=== PATIENT | male | born 1940 | race African-American/Black ===

== ENCOUNTER 2022-07-11 07:36 | Day surgery (SDC) | payer MEDICARE, OTHER ==
[~2022-07-11 07:36] MED LIST: CYCLOPENTOLATE 1% OPHTH DROPS 2 ML ONE; KETOROLAC 0.45% OPHTH DROPS ONE; PHENYLEPHRINE 2.5% OPHTH 2 ML DROPS ONE; PROPARACAINE 0.5% OPHTH DROPS 15 ML ONE
--- NOTE | 2022-07-11 07:41 | ANESTHESIA ---
Pre-Anesthesia VS, & Labs - Diagnosis L nuclear cataract - Procedure L cataract extraction w/IOL - NPO >8 hours - Lab Results Lab results reviewed: Yes Home Medications and Allergies Home Medications: Ambulatory Orders Amlodipine Besylate [Norvasc] 1 tab ORAL DAILY 07/11/22 Aspirin [Aspirin EC] 1 tab ORAL DAILY 07/11/22 Doxazosin [Cardura] 1 tab ORAL DAILY 07/11/22 Losartan Potassium [Cozaar] 1 tab ORAL DAILY 07/11/22 Multivitamin with Minerals [Multivitamins with Minerals] 1 tab ORAL DAILY 07/11/22 Vit D3/Vit K2/Calc Frutoborate [Move Free [id number]] 1 tab ORAL DAILY 07/11/22 Zinc Gluconate [Zinc] 50 mg PO DAILY 07/11/22 carvediloL [Coreg] 1 tab ORAL BID 07/11/22 Allergies/Adverse Reactions: Allergies Allergy/AdvReac Type Severity Reaction Status Date / Time No Known Drug Allergies Allergy Verified 07/10/22 12:41 Anes History & Medical History - Anesthetic History Anesthesia Complications: reports: No previous complications Family history of Anesthesia Complications: Denies Family history of Malignant Hyperthermia: Denies - Medical History Cardiovascular: reports: Hypertension Pulmonary: reports: None Gastrointestinal: reports: None Urinary: reports: None Musculoskeletal: reports: Osteoarthritis Endocrine/Autoimmune: reports: None Skin: reports: None - Surgical History General: reports: Other Orthopedic: reports: Arthroscopic surgery Exam General: Alert, Cooperative Dental: WNL Mouth Openin Fingerbreadth Neck Mobility: Normal Mallampati classification: II Thyromental Distance: 4-6 cm Respiratory: Lungs clear, Normal breath sounds, No respiratory distress Cardiovascular: Regular rate Neurological: Normal speech Mental/Cognitive Status: Alert/Oriented X3, Normal for patient Cognitive Status: Within normal limits Plan Anesthesia Type: MAC Consent for Procedure(s) Verified and Reviewed: Yes Code Status: Attempt Resuscitation ASA classification: 2-Mild systemic disease Is this case an emergency?: No
[2022-07-11] MEDS ORDERED: LACTATED RINGERS 1,000 ML IV ONE (08:00)
[2022-07-11] MEDS ORDERED: MIDAZOLAM 2 MG/2 ML VIAL ONE (08:44)
[2022-07-11] MEDS ORDERED: TRIAMCIN/MOXIFLOX OPHTHALMIC 0.6 ML VIAL IO ONE ×2 (08:46→09:09)
[2022-07-11] MEDS ORDERED: VANCOMYCIN OPHTH (TOPICAL) 10 MG/ML SYRINGE ONE (08:47)
[2022-07-11] MEDS ORDERED: TIMOLOL 0.5% OPHTH DROPS ONE (08:47)
[2022-07-11] MEDS ORDERED: BSS/LIDOCAINE/EPINEPHRINE 1 ML VIAL ONE (08:47)
[2022-07-11] MEDS ORDERED: BRIMONIDINE 0.2% OPHTH DROPS 5 ML ONE (08:47)
[2022-07-11] MEDS ORDERED: EPINEPHrine 1 MG/ML AMP ONE (08:47)
[2022-07-11] MEDS ORDERED: BSS/LIDOCAINE/EPINEPHRINE 1 ML SYRINGE IO ONE (09:09)
[2022-07-11] MEDS ORDERED: EPINEPHrine 1 MG/ML AMP IR ONE (09:09)
[2022-07-11] MEDS ORDERED: PROPARACAINE 0.5% OPHTH DROPS 15 ML EACHEYE ONE (09:09)
[2022-07-11] MEDS ORDERED: TIMOLOL 0.5% OPHTH DROPS OPTH ONE (09:09)
[2022-07-11] MEDS ORDERED: BRIMONIDINE 0.2% OPHTH DROPS 5 ML OPTH ONE (09:09)
[2022-07-11] MEDS ORDERED: VANCOMYCIN OPHTH (TOPICAL) 10 MG/ML SYRINGE TOP ONE (09:10)
[2022-07-11] MEDS ORDERED: LACTATED RINGERS 700 ML IV ONE (09:18)
--- NOTE | 2022-07-11 09:25 | OPERATIVE REPORT ---
Operative Report - Other Other Information/Narrative: Date of Surgery: 07/11/22 Preop Dx: Visually significant cataract left eye. This was the first cataract surgery. Postop Dx: Same Procedure: Phacoemulsification with posterior chamber intraocular lens implant left eye Surgeon: Dr. Sky Puga Anesthesia: Monitored anesthesia care Complications: None Operative Indications: This is a 82-year-old M with progressive vision loss in the left eye due to 2+ nuclear sclerotic and vacuolar cataract. Best corrected visual acuity was 20/40 with glare to 20/50 vision in the left eye. Indications for surgery were: - Difficulty seeing words on a computer screen - Difficulty reading - Difficulty seeing words, closed captions, or game scores on TV - Difficulty seeing street signs - Difficulty driving in low light or at night - Difficulty driving at night because of headlights from other vehicles The patient was consented at length concerning the risks and benefits of cataract surgery after which the patient expressed a desire to proceed with surgery. Operative Procedure: The patient was taken into OR#3 and placed under monitored anesthesia care. A surgical time-out was conducted confirming correct patient, correct procedure, and correct surgical site. The patient was given topical anesthesia and then prepped and draped in the usual sterile fashion. The eye was entered at the 6 and 3 oclock positions. Intracameral Shugarcaine was injected into the anterior chamber followed by a dispersive viscoelastic. A continuous-tear curvilinear capsulorhexis was performed. The nucleus was hydrodissected and phacoemulsified. The cortex was evacuated using automated infusion and aspiration. A cohesive viscoelastic was injected into the capsular bag and a 16.5 diopter intraocular lens was inserted into the bag. Infusion and aspiration were used to evacuate the viscoelastic materials from the eye. The wounds were hydrated and the eye inflated to physiologic pressure using balanced salt solution. Approximately 0.25ml of a mixture of triamcinolone and moxifloxacin was injected trans-sclerally into the vitreous in the inferotemporal quadrant using a 30 gauge cannula. An additional 0.25ml of a mixture of triamcinolone, and moxifloxacin was injected subconjunctivally in the superior quadrant for infection and inflammation prophylaxis. Wound integrity was checked with Weck-Rupa sponges. The patient was taken from the operating room in good condition and given post-op instructions.
[2022-07-11 09:35] VITALS: BP 146/77
--- NOTE | 2022-07-11 09:42 | ANESTHESIA POST OP EVALUATION ---
Anesthesia Post Eval - Post Anesthesia Eval Vitals: Last Vital Signs Temp 36.3 C L 07/11/22 09:33 Pulse 56 L 07/11/22 09:33 Resp 16 07/11/22 09:33 BP 146/77 H 07/11/22 09:33 Pulse Ox 99 07/11/22 09:33 O2 Flow Rate CV Function Including HR & BP: Stable Pain Control: Satisfactory Nausea & Vomiting: Negative Mental Status: Baseline Respiratory Status: Airway Patent Hydration Status: Satisfactory Anesthesia Complications: None
== END 2022-07-11 07:37 | disposition home or self-care (01) ==
LOC: SDS 07:36
PROVIDERS: ATTEND Ophthalmology
DX: H25.12 Age-related nuclear cataract, left eye (principal); I10 Essential (primary) hypertension
CPT/HCPCS: 66984; A9270; J3490; J7120

== ENCOUNTER 2023-06-19 08:19 | Day surgery (SDC) | payer MEDICARE, OTHER ==
[2023-06-19] MEDS: KETOROLAC 0.45% OPHTH DROPS ONE (08:50)
[2023-06-19] MEDS: PROPARACAINE 0.5% OPHTH DROPS 15 ML ONE (08:50)
[2023-06-19] MEDS: PHENYLEPHRINE 2.5% OPHTH 2 ML DROPS ONE (08:51)
[2023-06-19] MEDS: CYCLOPENTOLATE 1% OPHTH DROPS 2 ML RIGHTEYE ONE (08:51)
[2023-06-19] MEDS: LACTATED RINGERS 1,000 ML IV ONE ×2 (09:10→10:33)
[2023-06-19] MEDS ORDERED: TIMOLOL 0.5% OPHTH DROPS ONE (09:45)
[2023-06-19] MEDS ORDERED: BRIMONIDINE 0.2% OPHTH DROPS 5 ML ONE (09:45)
[2023-06-19] MEDS ORDERED: EPINEPHrine 1 MG/ML AMP ONE (09:45)
[2023-06-19] MEDS ORDERED: TRIAMCIN/MOXIFLOX OPHTHALMIC 0.6 ML VIAL IO ONE (09:45)
[2023-06-19] MEDS ORDERED: BSS/LIDOCAINE/EPINEPHRINE 1 ML VIAL ONE (09:46)
--- NOTE | 2023-06-19 09:49 | ANESTHESIA ---
Pre-Anesthesia VS, & Labs - Diagnosis right nuclear cataract - Procedure right cataract extraction with IOL Vital Signs: Temp Pulse Resp BP Pulse Ox O2 Flow Rate 36.5 C 51 L 14 163/72 H 100 06/19/23 08:56 06/19/23 08:56 06/19/23 08:56 06/19/23 08:56 06/19/23 08:56 Height: 5 ft 8 in Weight (kg): 80.2 kg Body Mass Index: 26.9 BMI Classification: Overweight - NPO >8 hours Home Medications and Allergies Amlodipine Besylate [Norvasc] 1 tab ORAL DAILY 07/11/22 Aspirin [Aspirin EC] 1 tab ORAL DAILY 07/11/22 Doxazosin [Cardura] 1 tab ORAL DAILY 07/11/22 Losartan Potassium [Cozaar] 1 tab ORAL DAILY 07/11/22 Multivitamin with Minerals [Multivitamins with Minerals] 1 tab ORAL DAILY 07/11/22 Vit D3/Vit K2/Calc Frutoborate [Move Free [id number]] 1 tab ORAL DAILY 07/11/22 Zinc Gluconate [Zinc] 50 mg PO DAILY 07/11/22 carvediloL [Coreg] 1 tab ORAL BID 07/11/22 Allergies/Adverse Reactions: Allergies Allergy/AdvReac Type Severity Reaction Status Date / Time No Known Drug Allergies Allergy Verified 07/10/22 12:41 Anes History & Medical History - Anesthetic History Anesthesia Complications: reports: No previous complications - Medical History Cardiovascular: reports: Hypertension Pulmonary: reports: None Gastrointestinal: reports: None Urinary: reports: None Musculoskeletal: Endocrine/Autoimmune: reports: None Skin: reports: None Smoking Status: Never smoker - Surgical History General: reports: Other Orthopedic: reports: Arthroscopic surgery Exam General: Alert, Oriented x3 Dental: WNL, Dentures full Upper, Dentures full Lower Mouth Opening: Greater than 4 Fingerbreadths Neck Mobility: Normal Mallampati classification: II Thyromental Distance: greater than 6 cm Respiratory: Lungs clear Cardiovascular: Regular rate, Normal S1, Normal S2 Plan Anesthesia Type: MAC Consent for Procedure(s) Verified and Reviewed: Yes Code Status: Attempt Resuscitation ASA classification: 2-Mild systemic disease Is this case an emergency?: No
--- NOTE | 2023-06-19 10:03 | ANESTHESIA ---
Pre-Anesthesia VS, & Labs - Diagnosis RIGHT EYE CATARACT - Procedure PE IOL OD Vital Signs: Temp Pulse Resp BP Pulse Ox O2 Flow Rate 36.5 C 51 L 14 163/72 H 100 06/19/23 08:56 06/19/23 08:56 06/19/23 08:56 06/19/23 08:56 06/19/23 08:56 Height: 5 ft 8 in Weight (kg): 80.2 kg Body Mass Index: 26.9 BMI Classification: Overweight - NPO Other Home Medications and Allergies Amlodipine Besylate [Norvasc] 1 tab ORAL DAILY 07/11/22 Aspirin [Aspirin EC] 1 tab ORAL DAILY 07/11/22 Doxazosin [Cardura] 1 tab ORAL DAILY 07/11/22 Losartan Potassium [Cozaar] 1 tab ORAL DAILY 07/11/22 Multivitamin with Minerals [Multivitamins with Minerals] 1 tab ORAL DAILY 07/11/22 Vit D3/Vit K2/Calc Frutoborate [Move Free [id number]] 1 tab ORAL DAILY 07/11/22 Zinc Gluconate [Zinc] 50 mg PO DAILY 07/11/22 carvediloL [Coreg] 1 tab ORAL BID 07/11/22 Allergies/Adverse Reactions: Allergies Allergy/AdvReac Type Severity Reaction Status Date / Time No Known Drug Allergies Allergy Verified 07/10/22 12:41 Anes History & Medical History - Anesthetic History Anesthesia Complications: reports: No previous complications Family history of Anesthesia Complications: Denies Family history of Malignant Hyperthermia: Denies - Medical History Cardiovascular: reports: Hypertension Pulmonary: reports: None Gastrointestinal: reports: None Urinary: reports: None Musculoskeletal: Endocrine/Autoimmune: reports: None Skin: reports: None Smoking Status: Never smoker - Surgical History General: reports: Other Orthopedic: reports: Arthroscopic surgery Exam Dental: WNL, Dentures full Upper, Dentures full Lower Plan Anesthesia Type: Total IV Consent for Procedure(s) Verified and Reviewed: Yes Code Status: Attempt Resuscitation ASA classification: 2-Mild systemic disease Is this case an emergency?: No
[2023-06-19] MEDS ORDERED: MIDAZOLAM 2 MG/2 ML VIAL ONE (10:05)
[2023-06-19] MEDS: BRIMONIDINE 0.2% OPHTH DROPS 5 ML OPTH ONE (10:24)
[2023-06-19] MEDS: EPINEPHrine 1 MG/ML AMP IR ONE (10:24)
[2023-06-19] MEDS: TIMOLOL 0.5% OPHTH DROPS OPTH ONE (10:24)
[2023-06-19] MEDS: TRIAMCIN/MOXIFLOX OPHTHALMIC 0.6 ML VIAL IO ONE (10:25)
[2023-06-19] MEDS: VANCOMYCIN OPHTH (TOPICAL) 10 MG/ML SYRINGE TOP ONE (10:25)
[2023-06-19] MEDS: BSS/LIDOCAINE/EPINEPHRINE 1 ML SYRINGE IO ONE (10:25)
[2023-06-19] MEDS: PROPARACAINE 0.5% OPHTH DROPS 15 ML RIGHTEYE ONE (10:25)
--- NOTE | 2023-06-19 10:32 | OPERATIVE REPORT ---
Operative Report - Other Other Information/Narrative: Date of Surgery: 06/19/23 Preop Dx: Visually significant cataract right eye. Cataract surgery was performed in the left eye on . Postop Dx: Same Procedure: Phacoemulsification with posterior chamber intraocular lens implant right eye Surgeon: Dr. Sky Puga Anesthesia: Monitored anesthesia care Complications: None Operative Indications: This is a 83-year-old M with progressive vision loss in the right eye due to 2+ nuclear sclerotic and 1+ anterior subcapsular with central spoke cataract. Best corrected visual acuity was 20/25 with glare to 20/500 vision in the right eye. Indications for surgery were: - Overall decrease in vision - Difficulty seeing words on a computer screen - Difficulty reading - Difficulty seeing words, closed captions, or game scores on TV - Difficulty seeing street signs - Difficulty driving at night because of headlights from other vehicles The patient was consented at length concerning the risks and benefits of cataract surgery after which the patient expressed a desire to proceed with surgery. Operative Procedure: The patient was taken into OR#3 and placed under monitored anesthesia care. A surgical time-out was conducted confirming correct patient, correct procedure, and correct surgical site. The patient was given topical anesthesia and then prepped and draped in the usual sterile fashion. The eye was entered at the 6 and 3 oclock positions. Intracameral Shugarcaine was injected into the anterior chamber followed by a dispersive viscoelastic. A continuous-tear curvilinear capsulorhexis was performed. The nucleus was hydrodissected and phacoemulsified. The cortex was evacuated using automated infusion and aspiration. A cohesive viscoelastic was injected into the capsular bag and a 17.5 diopter intraocular lens was inserted into the bag. Infusion and aspiration were used to evacuate the viscoelastic materials from the eye. The wounds were hydrated and the eye inflated to physiologic pressure using balanced salt solution. Approximately 0.25ml of a mixture of triamcinolone and moxifloxacin was injected trans-sclerally into the vitreous in the inferotemporal quadrant using a 30 gauge cannula. An additional 0.25ml of a mixture of triamcinolone and moxifloxacin was injected subconjunctivally in the superior quadrant for infection and inflammation prophylaxis. Wound integrity was checked with Weck-Rupa sponges. The patient was taken from the operating room in good condition and given post-op instructions.
[2023-06-19 11:05] VITALS: BP 159/66; O2SAT 100
--- NOTE | 2023-06-19 11:23 | ANESTHESIA POST OP EVALUATION ---
Anesthesia Post Eval - Post Anesthesia Eval Vitals: Last Vital Signs Temp 36.4 C L 06/19/23 10:57 Pulse 57 L 06/19/23 10:57 Resp 16 06/19/23 10:57 BP 159/66 H 06/19/23 10:57 Pulse Ox 100 06/19/23 10:57 O2 Flow Rate CV Function Including HR & BP: Stable Pain Control: Satisfactory Nausea & Vomiting: Negative Mental Status: Baseline Respiratory Status: Airway Patent Hydration Status: Satisfactory Anesthesia Complications: None
== END 2023-06-19 08:20 | disposition home or self-care (01) ==
LOC: SDS 08:19
PROVIDERS: ATTEND Ophthalmology
DX: H25.11 Age-related nuclear cataract, right eye (principal); I10 Essential (primary) hypertension; Z98.42 Cataract extraction status, left eye
CPT/HCPCS: 66984; A9270; J3490; J7120